=== PATIENT | female | born 1950 | race Caucasian/White ===

== ENCOUNTER 2022-01-25 11:23 | Outpatient (CLI) | payer MEDICARE, SELFPAY ==
--- NOTE | 2022-01-25 11:30 | CRLHL7_ITS ---
For Patients: As a result of the Century Cures Act, medical imaging exams and procedure reports are released immediately into your electronic medical record. You may view this report before your referring provider. If you have questions, please contact your health care provider. BILATERAL MAMMOGRAM WITH COMPUTER-AIDED DETECTION TECHNIQUE: CC and MLO views were obtained. These mammographic images have been obtained using full-field digital technique. These mammographic images were interpreted with the benefit of computer-aided detection. COMPARISON FILM: 01/24/2021, 01/23/2020, 11/28/2018. FINDINGS: The breasts are almost entirely fatty IMPRESSION: There is no radiographic evidence for malignancy. ASSESSMENT: BI-RADS Category 1: Negative RECOMMENDATION: Routine screening mammogram in 1 year. A lay language report of this examination will be provided to the patient. Margret Abreu M.D. Diagnostic/Breast Radiologist [facility] [email or web address] Transcribed: 3:35 p.m. [email or web address] ROB/Dictated by: Margret Abreu MD @ 01/26/2022 8:54:00 AM (Electronically Signed)
== END 2022-01-25 11:24 | disposition home or self-care (01) ==
LOC: MAMMO 11:24
PROVIDERS: PCP Nurse Practitioner Family; Visit Provider Family Medicine
DX: Z12.31 Encounter for screening mammogram for malignant neoplasm of breast (principal)
CPT/HCPCS: 77063; 77067

== ENCOUNTER 2022-07-19 10:50 | Outpatient (CLI) | payer MEDICARE, SELFPAY ==
[2022-07-19 14:00] LABS: Chloride* 107 mmol/L (96-114); Potassium* 4.1 mmol/L (3.6-5.1); Sodium* 143 mmol/L (135-149)
[2022-07-19 14:03] LABS: Blood Urea Nitrogen* 13 mg/dL (7-30); Carbon Dioxide* 26 mmol/L (20-32); Creatinine* 0.8 mg/dL (0.5-1.5); Estimated Glomerular Filt Rate 80 ml/min; Glucose* 112 mg/dL (60-115)
[2022-07-19 14:04] LABS: Calcium* 9.9 mg/dL (8.4-10.6)
== END 2022-07-19 10:51 | disposition home or self-care (01) ==
LOC: LKVREF 10:50
PROVIDERS: PCP Nurse Practitioner Family; Visit Provider Emergency Medicine
DX: I10 Essential (primary) hypertension (principal)
CPT/HCPCS: 80048

== ENCOUNTER 2022-11-01 10:21 | Outpatient (CLI) | payer MEDICARE, SELFPAY ==
[2022-11-01 16:38] LABS: Lab Add On Test New Spec Needed
== END 2022-11-01 10:22 | disposition home or self-care (01) ==
PROVIDERS: PCP Emergency Medicine; Visit Provider Emergency Medicine
DX: R73.01 Impaired fasting glucose (principal); E78.5 Hyperlipidemia, unspecified; I10 Essential (primary) hypertension
CPT/HCPCS: 80053; 80061

== ENCOUNTER 2022-11-15 13:01 | Outpatient (CLI) | payer MEDICARE, SELFPAY ==
--- NOTE | 2022-11-15 13:30 | CRLHL7_ITS ---
For Patients: As a result of the Cures Act, medical imaging exams and procedure reports are released immediately into your electronic medical record. You may view this report before your referring provider. If you have questions, please contact your health care provider. DXA BONE MINERAL DENSITY STUDY, 11/15/2022 Reason for exam: Osteoporosis screening. Current height (inches): 63 Weight (lbs.): 202 Menopause age: 28 Ethnicity: White 1. Have you had a previous hip or vertebral fracture? No. 2. Have you had any fractures during your adult life which did not result from significant trauma (e.g., auto accident)? No. 3. Did either of your parents have a hip fracture? No. 4. Do you smoke? No. 5. Have you ever taken Glucocorticoids? No. 6. Do you have rheumatoid arthritis? No. 7. Do you have secondary osteoporosis? No. 8. Do you drink 3 or more alcoholic drinks per day? No. 9. Are you being treated for osteoporosis? No. 10. Have you ever taken any of the following medications: Actonel, Evista, Fosamax, Miacalcin, Reclast, Boniva, Forteo, HRT (i.e., estrogen/hormone therapy), Protelos, Prolia, Vitamin D, Calcium, other ??? please specify. ANSWER: Yes; vitamin D. 11. Do you have any of the following medical conditions: Anorexia or bulimia, asthma or emphysema, end stage renal disease, hyperparathyroidism, any seizure disorders, cancer, inflammatory bowel diseases, hysterectomy, other ??? please specify. ANSWER: No. 12. What was your maximum height (inches)? 63. 13. Do you perform weightbearing exercise regularly? Yes. 14. Do you regularly consume dairy products? Yes. 15. Do you drink caffeinated beverages? No. 16. At what age did your period start? 13. 17. Are you premenopausal? No. 18. How many full-term pregnancies have you had? 0 . 19. Have you ever missed your period for more than 6 months in a row (not including or menopause)? No. TECHNIQUE: Bone mineral density study was performed using the [employer]. FINDINGS: The results of the study expressed as bone mineral density (BMD) are as follows: Lumbar Spine L1, L3 to L4: BMD: 1.720 g/cm2. T-score: 6.1. Z-score: 8.2. Neck Left: BMD: 0.723 g/cm2. T-score: -1.1. Z-score: 0.7. Right: BMD: 0.758 g/cm2. T-score: -0.8. Z-score: 1.0. Total Left: BMD: 0.838 g/cm2. T-score: -0.9. Z-score: 0.7. Right: BMD: 0.783 g/cm2. T-score: -1.3. Z-score: 0.2. IMPRESSION: Osteopenia. FRAX 10-year Fracture Risk Major Osteoporotic Fracture: 8.3% Hip Fracture: 0.9% Reported Risk Factors: [place] () Neck BMD = 0.723, BMI = 35.8 DANNY CAMILO M.D. Diagnostic Radiologist [email or web address] Transcribed: 11:[address]/Dictated by: Danny Camilo MD @ 11/16/2022 9:09:00 AM (Electronically Signed)
== END 2022-11-15 13:02 | disposition home or self-care (01) ==
LOC: RAD 13:02
PROVIDERS: PCP Emergency Medicine; Visit Provider Emergency Medicine
DX: Z13.820 Encounter for screening for osteoporosis (principal); M85.89 Other specified disorders of bone density and structure, multiple sites
CPT/HCPCS: 77080

== ENCOUNTER 2023-02-13 15:11 | Outpatient (CLI) | payer MEDICARE, SELFPAY ==
--- NOTE | 2023-02-13 15:20 | CRLHL7_ITS ---
For Patients: As a result of the Century Cures Act, medical imaging exams and procedure reports are released immediately into your electronic medical record. You may view this report before your referring provider. If you have questions, please contact your health care provider. BILATERAL SCREENING MAMMOGRAM WITH COMPUTER-AIDED DETECTION TECHNIQUE: CC and MLO views were obtained. These mammographic images have been obtained using full-field digital technique. These mammographic images were interpreted with the benefit of computer-aided detection. COMPARISON FILM: 01/25/22, 01/23/20, 08/04/19. FINDINGS: The breasts are almost entirely fatty. IMPRESSION: There is no radiographic evidence for malignancy. ASSESSMENT: BI-RADS Category 2: Benign RECOMMENDATION: Routine screening mammogram in 1 year. A lay language report of this examination will be provided to the patient. MAGALY HERNANDEZ M.D. Diagnostic/Nuclear Medicine Radiologist [email or web address] MAURA:[email or web address] Transcribed: 02/14/2023, 6:[address]/Dictated by: Magaly Hernandez MD @ 02/14/2023 8:51:00 AM (Electronically Signed)
== END 2023-02-13 15:12 | disposition home or self-care (01) ==
LOC: MAMMO 15:12
PROVIDERS: PCP Emergency Medicine; Visit Provider Emergency Medicine
DX: Z12.31 Encounter for screening mammogram for malignant neoplasm of breast (principal)
CPT/HCPCS: 77063; 77067

== ENCOUNTER 2024-04-10 13:35 | Outpatient (CLI) | payer MEDICARE, SELFPAY | END 2024-04-10 13:36 | disposition home or self-care (01) | PROVIDERS: PCP Emergency Medicine; Visit Provider Emergency Medicine | DX: I10 Essential (primary) hypertension (principal); M85.9 Disorder of bone density and structure, unspecified | CPT/HCPCS: 80053; 82306 ==

== ENCOUNTER 2024-04-25 15:14 | Outpatient (CLI) | payer MEDICARE, SELFPAY ==
--- NOTE | 2024-04-25 15:20 | CRLHL7_ITS ---
For Patients: As a result of the Century Cures Act, medical imaging exams and procedure reports are released immediately into your electronic medical record. You may view this report before your referring provider. If you have questions, please contact your health care provider. BILATERAL SCREENING MAMMOGRAM WITH COMPUTER-AIDED DETECTION AND TOMOSYNTHESIS TECHNIQUE: CC and MLO views were obtained. These mammographic images have been obtained using full-field digital technique. These mammographic images were interpreted with the benefit of computer-aided detection. Breast Tomosynthesis was used in this interpretation. COMPARISON FILM: 02/13/23, 01/25/22, 01/24/21. FINDINGS: There are scattered areas of fibroglandular density. IMPRESSION: There is no radiographic evidence for malignancy. ASSESSMENT: BI-RADS Category 1: Negative RECOMMENDATION: Routine screening mammogram in 1 year. A lay language report of this examination will be provided to the patient. Danny Moise M.D. Diagnostic Radiologist [email or web address] SP/Dictated by: Danny Moise MD @ 04/28/2024 10:01:00 AM (Electronically Signed)
== END 2024-04-25 15:15 | disposition home or self-care (01) ==
LOC: MAMMO 15:16
PROVIDERS: PCP Emergency Medicine; Visit Provider Emergency Medicine
DX: Z12.31 Encounter for screening mammogram for malignant neoplasm of breast (principal)
CPT/HCPCS: 77063; 77067

== ENCOUNTER 2025-04-01 20:34 | Inpatient (IN) | payer MEDICARE, SELFPAY ==
--- OUTSIDE RECORDS SUMMARY | 2025-04-01 20:37 | XMS_ITS | Clinical Summary ---
Author Organization [facility] Address [address] [place] [address] Care Team Providers Care Reliability Engineer Name Role Phone None Reported, Pcp Primary Care Provider Unavail able Source Comments Patient records contain information from all sites at [facility]. For routine questions regarding patient records, call [phone] during business hours, M-F 8:00 AM - 5:00 PM Central Time. Record requests for emergency care only can be directed to [phone] at any time.[facility] Allergies Active Allergy Reactions Criticality Noted Date Comments Penicillins Anaphylaxis,Rash High 07/06/2003 Medications aspirin [address] tablet Take 1 tablet (81 mg total) by mouth daily. 90 tablet 01/05/2024 Active atorvastatin (LIPITOR) 40 mg tablet Take 1 tablet (40 mg total) by mouth at bedtime. 90 tablet 01/04/2024 Active lisinopriL (PRINIVIL,ZESTRI L) 10 mg tablet Take 1 tablet (10 mg total) by mouth daily. 90 tablet 01/05/2024 Active Active Problems Problem Noted Date Diagnosed Date Syncope 01/02/2024 Non-ST Elevation Myocardial Infarction 4 Edema 09/07/2011 Fracture Patella Closed Initial 12/02/2007 Overview (01/02/2024): left 2004 ; Fx Patella Closed Rhinitis Allergic 07/14/2003 Overview (01/02/2024): Rhinitis Allergic NOS Obesity Unspecified 01/03/2003 Immunizations Immunization Administration Dates Next Due DT, Pediatric 06/11/1985 HepB Adult 04/28/2005,02/01/1994,01/04/1994 Influenza, Unspecified 04/21/2010 Td (Adult), adsorbed 08/03/2003 Tdap 01/02/2024,04/23/2012 Social History Tobacco Use Types Packs/Day Years Used Date Smoking Tobacco: Unknown Passive Smoke Exposure: Never Smokeless Tobacco: Never Tobacco Cessation:Counseling Given: Not Answered Alcohol Use Standard Drinks/Week Comments Defer 0 (1 standard drink = 0.6 oz pur e alcohol) [facility] Utilities Answer Date Recorded In the past 12 months has e [employer], gas, oil, or water [employer] threatened to shut off services in your home? Patient declined 01/02/2024 Humiliation, Afraid, Rape, and Kick questionnair e Answer Date Recorded Within the last year, have y ou been afraid of your partner or ex-partner? Patient declined 01/02/2024 Within the last year, have y ou been humiliated or emotionally abused in other ways by your partner or ex-partner? Patient declined 01/02/2024 Within the last year, have y ou been kicked, hit, slapped, or otherwise physically hurt by your partner or ex-partner? Patient declined 01/02/2024 Within the last year, have y ou been raped or forced to have any kind of sexual activity by your partner or ex-partner? Patient declined 01/02/2024 Hunger Vital Sign Answer Date Recorded Within the past 12 months, y ou worried that your food would run out before you got the money to buy more. Patient declined Within the past 12 months, t he food you bought just didn't last and you didn't have money to get more. Patient declined 11/2023 PRAPARE - Transportation Answer Date Re corded In the past 12 months, has l ack of transportation kept you from medical appointments or from getting medications? Patient declined 01/02/2024 In the past 12 months, has l ack of transportation kept you from meetings, work, or from getting things needed for daily living? Patient declined 01/02/2024 Housing Stability Answer Date Recorded What is your living situation today? 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 Gender Identity Not on file Sexual Orientation Not on file Last Filed Vital Signs Vital Sign Reading Time Taken Comments Blood Pressure 133/57 01/04/2024 11:30 AM CDT Pulse 95 01/04/2024 5:45 AM CDT Temperature 36.6 C (97.9 F) 01/04/2024 10:33 AM CDT Respiratory Rate 16 01/04/2024 10:33 AM CDT Oxygen Saturation 95% 01/04/2024 2:46 AM CDT Inhaled Oxygen Concentration - - Weight 99.6 kg (219 lb 9.3 oz) 01/02/2024 10:12 PM CDT Height 162.6 cm (5' 4) 01/02/2024 10:12 PM CDT Body Mass Index 37.69 01/02/2024 10:12 PM CDT Plan of Treatment Health Maintenance Due Date Last Done Comments Bone Density Scan (Osteoporosis Screen) 1952 CT Colonography 1952 Cologuard 1950 Colonoscopy 1952 Colorectal Cancer Screening 1952 FIT 1952 Hepatitis C Screening 1950 Office Visit for Blood Pressure Check / Re-check 1952 Pneumococcal vaccine (50+ years) (1 of 1 - PCV) 2002 Zoster Vaccines (1 of 2) 2002 Mammogram 10/10/2013 10/10/2012, 09/27, 10/11/2011 Depression Screening (Annual PHQ-2) 07/30/2024 Fall Risk Screen (Annual) 07/30/2024 Creatinine Level (Kidney Function Test) 01/03/2025 01/04/2024, 01/03/2024, 01/02/2024 Potassium Level 01/03/2025 01/04/2024, 06/0 12/2023, 01/02/2024 Sodium Level 01/03/2025 01/04/2024, 06/0 12/2023, 01/02/2024 COVID-19 Vaccine ( season) 2025 Influenza Vaccine (#1) 2025 0, 06/07/1999, 05/18/1998, Additional history exists Fasting Glucose for Diabetes Screening 01/03/2027 01/04/2024, 01/03/2024, 01/03/2024, Additional history exists Lipid (Cholesterol) Screening 01/02/2029 01/03/2024 DTaP,Tdap,and Td Vaccines (5 - Td or Tdap) 01/01/2034 01/02/2024, 04/23/2012, 08/03/2003, Additional history exists Hepatitis B Vaccines Completed 04/28/2005, 02/01/1994, 01/04/1994 IPV Vaccines Aged Out No longer eligi ble based on patient's age to complete this topic Procedures Procedure Name Priority Date/Time Associated Diagnosis Comments BASIC METABOLIC PANEL, S/P Routine 01/04/2024 6:37 AM CDT LIPID PANEL, S Routine 01/03/2024 6:24 AM CDT from Last 3 Months or Most Recently Relevant to Health Maintenance Results * Basic Metabolic Panel (01/04/2024 6:37 AM CDT) Potassium, P 3.9 3.6 - 5.2 mmol/L 01/04/2024 7:07 AM CDT [facility] Sodium, P 141 135 - 145 mmol/L 01/04/2024 7:07 AM CDT [facility] Chloride, P 105 98 - 107 mmol/L 01/04/2024 7:07 AM CDT [facility] Bicarbonate, P 22 22 - 29 mmol/L 01/04/2024 7:07 AM CDT [facility] Anion Gap, P 14 7 - 15 01/04/2024 7:07 AM CDT [facility] BUN (Blood Urea Nitrogen), P 11 6 - 21 mg/dL 01/04/2024 7:07 AM CDT [facility] Creatinine 0.67 0.59 - 1.04 mg/dL 01/04/2024 7:07 AM CDT [facility] Estimated GFR (eGFR) >90 >=60 mL/min/BSA 01/04/2024 7:07 AM CDT [facility] Comment: Estimated GFR calculated using the 2020 CKD_EPI creatinine equation. Calcium, Total, P 9.3 8.8 - 10.2 mg/dL 01/04/2024 7:07 AM CDT [facility] Glucose, P 118 70 - 140 mg/dL 01/04/2024 7:07 AM CDT TO Blood (Blood, Venous) 01/04/2024 6:37 AM CDT 01/04/2024 6:43 AM CDT Bony Vidal M.D. LAB BLOOD ADD-ON F inal Result [facility] [address] [place] [address], [facility] [place] [address] [address] * (ABNORMAL) Lipid Panel (01/03/2024 6:24 AM CDT) Triglycerides 180(H) mg/dL 01/03/2024 6:48 AM CDT [facility] Comment: ----REFERENCE VALUE---- Normal: <150 mg/dL Borderline High: 150-199 mg/dL High: 200-499 mg/dL Very High: > or =500 mg/dL Cholesterol, Total 219(H) mg/dL 2023 6:48 AM CDT [facility]TO Comment: ----REFERENCE VALUE---- Desirable: < 200 mg/dL Borderline High: 200 - 239 mg/dL High: > or = 240 mg/dL Cholesterol, LDL, Calculated 145(H) mg/dL 01/03/2024 6:48 AM CDT [facility] Comment: ----REFERENCE VALUE---- Desirable: <100 mg/dL Above Desirable: 100-129 mg/dL Borderline High: 130-159 mg/dL High: 160-189 mg/dL Very High: >=190 mg/dL ----ADDITIONAL INFORMATION---- LDL cholesterol calculated using the Frederick/NIH equation. Cholesterol, HDL 41(L) >=50 mg/dL 01/03/20 6:48 AM CDT [facility] Cholesterol, Non-HDL, Calculated 178(H) mg/dL 01/03/2024 6:48 AM CDT [facility] Comment: ----REFERENCE VALUE---- Desirable: <130 mg/dL Above Desirable: 130-159 mg/dL Borderline High: 160-189 mg/dL High: 190-219 mg/dL Very High: > or =220 mg/dL Fasting (8 HR or more) Yes 01/03/2024 6:28 AM CDT [facility] Blood (Blood, Venous) 01/03/2024 6:24 AM CDT 01/03/2024 6:28 AM CDT us Eddie Nunez M.D. LAB BLOOD ADD-ON Final Result [facility] [address] [place] [address], [facility] [place] [address] [place] [address] from Last 3 Months or Most Recently Relevant to Health Maintenance [facility] Advance Directives For more information, please contact: [phone] * Full Code (Latest Code Status on File) Date Activated Date Inactivated Comments 01/03/2024 1:30 PM 01/04/2024 3:31 PM Question Answer Comments Full Code: Discussed * Full Code Date Activated Date Inactivated Comments 01/02/2024 10:20 PM 01/03/2024 1:30 PM Question Answer Comments Full Code: Discussed Care Teams Reliability Engineer Relationship Specialty Start Date End Date None Reported, Pcp PCP - General 06/06/24
--- OUTSIDE RECORDS SUMMARY | 2025-04-01 20:37 | XMS_ITS | Clinical Summary ---
Author Organization [facility] Address [address] [place] [id number] Care Team Providers Care Batch Dumper Name Role Phone Amber Sapp Primary Care Provider + Allergies Active Allergy Reactions Criticality Noted Date Comments Penicillins Anaphylaxis,Rash High 07/06/2003 Medications acetaminophen (TYLENOL) 325 mg tabletIndications: Status post placement of implantable loop recorder Take 2 Tablets (650 mg) by mouth every 4 hours if needed for Pain (For mild pain.). Max acetaminophen dose: 4000mg in 24 hrs. 05/13/20 24 Active apixaban (Eliquis) 5 mg tabletIndications: Paroxysmal atrial fibrillation (HC) Take 1 Tablet (5 mg) by mouth two times daily. 180 Tablet 3 08/14/19 25 Active metoprolol succinate (TOPROL XL) 25 mg Sustained-Release tabletIndications: Paroxysmal atrial fibrillation (HC) Take 1 Tablet (25 mg) by mouth once daily. 90 Tablet 3 09/16/19 25 Active atorvastatin (LIPITOR) 40 mg tabletIndications: Paroxysmal atrial fibrillation (HC),Hyperlipidemi a, unspecified hyperlipidemia type Take 1 Tablet (40 mg) by mouth at bedtime. 90 Tablet 3 09/16/19 25 Active lisinopriL (PRINIVIL; ZESTRIL) 10 mg tabletIndications: Paroxysmal atrial fibrillation (HC),Hyperlipidemi a, unspecified hyperlipidemia type Take 1 Tablet (10 mg) by mouth once daily. 90 Tablet 3 09/16/19 25 Active Encounters Date Type Department Care Team Description 03/18/2025 Telephone [facility] [address] [place] [address] Dr Guerra [address] [place] [id number] Guero Waters MD Results (Loop recorder) from Last 3 Months Social History Tobacco Use Types Packs/Day Years Used Date Smoking Tobacco: Never Smokeless Tobacco: Never Tobacco Cessation:Counseling Given: Not Answered Alcohol Use Standard Drinks/Week Comments Not Asked 0 (1 standard drink = 0.6 oz pur e alcohol) rare use Comments Unknown Sex and Gender Information Value Date Recorded Sex Assigned at Not on file Legal Sex Female 6:23 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5 cm (5' 2) 05/13/2024 12:1 3 PM CDT Body Mass Index 41.08 05/13/2024 12:13 PM CDT Plan of Treatment Upcoming Encounters Date Type Department Care Team (Late st Contact Info) Description 06/17[facility]20[phone] Health Maintenance Due Date Last Done Comments Tetanus booster 1963 Depression screening for age 12+ 1964 Hepatitis C screening for ag e 18-79 1970 Pneumococcal series for age 50+ (1 of 2 - PCV) 1971 Colonoscopy through age 75 1997 Lipids for age 45-75 1997 Mammogram for age 45-75 1997 Zoster (shingles) series for age 50+ (1 of 2) 2002 RSV vaccine for adults or (1 - Risk 60-74 years 1-dose series) 2012 DEXA/DXA scan for age 65+ 2017 Medicare Wellness for age 65+ 2017 COVID-19 vaccine series ( season) 2024 08/26/2021, 03/14/2021, 02/21/2021 BMI (ht and wt on same day) for age 18+ 02/11/2025 02/12/2024 Influenza Vaccine (#1) 2025 Hepatitis B series for 19+ Aged Out N o longer eligible based on patient's age to complete this topic Insurance [facility] MEDICARE PART A HB ONLY [facility] Care Teams Batch Dumper Relationship Specialty [facility] Date [facility] [address] [place] [address] PCP - General 03/25/24
[2025-04-01 20:42] VITALS: BP 158/101; PULSE 78; RESP 16; TEMP 36.7; O2SAT 97; BMI 32.6
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
--- NOTE | 2025-04-01 21:04 | CRLHL7_ITS ---
For Patients: As a result of the Cures Act, medical imaging exams and procedure reports are released immediately into your electronic medical record. You may view this report before your referring provider. If you have questions, please contact your health care provider. Indication: Trauma. Technique: AP view of the pelvis with AP and lateral views of the left hip. Comparison: None. Findings/Impression: Acute, nondisplaced intertrochanteric fracture of the left femur. No additional fracture appreciated. No dislocation. No suspicious soft tissue abnormality. Dictated by Andrew Mckeon MD @ 04/01/2025 10:03:19 PM (Electronically Signed)
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
[2025-04-01 22:28] LABS: Hematocrit 43.9 % (33.0-51.0); Hemoglobin* 14.4 gm/dL (12.0-16.0); Immature Granulocytes Abs Auto 0.03 K/uL (0.00-0.30); Immature Granulocytes Pct Auto 0.3 %; Mean Corpuscular HGB Conc 33 gm/dL (32-36); Mean Corpuscular Hemoglobin 30 pg (26-34); Mean Corpuscular Volume 92 fL (80-100); RDW Coefficient of Variation % 13.6 % (11.5-15.5); Red Blood Count 4.76 m/uL (4.00-5.20); White Blood Count* 9.63 K/uL (4.50-11.00)
[2025-04-01 22:29] LABS: Lymphocytes Absolute Auto 1.10 K/uL (0.90-2.90); Slide Review Reflex No
[2025-04-01] MEDS: MORPHINE 4 MG/ML INJ IVP (22:30)
[2025-04-01 22:40] VITALS: BP 162/79; PULSE 73; RESP 21; TEMP 36.6; O2SAT 95
[2025-04-01 22:51] LABS: Albumin* 4.3 g/dL (3.3-5.0); Chloride* 110 mmol/L (96-114); Potassium* 4.6 mmol/L (3.6-5.1); Sodium* 142 mmol/L (135-149)
[2025-04-01 22:53] LABS: Blood Urea Nitrogen* 18 mg/dL (7-30); Creatinine* 0.8 mg/dL (0.5-1.5); Est. Creatinine Clearance* 43.91; Estimated Glomerular Filt Rate 78 ml/min
[2025-04-01 22:54] LABS: Alanine Aminotransferase* 35 U/L (4-35); Alkaline Phosphatase* 98 U/L (40-150); Anion Gap 6 mEq/L (7-15); Aspartate Amino Transferase* 51 U/L (12-35); Bilirubin Direct* 0.4 mg/dL (0.0-0.5); Bilirubin Total* 0.6 mg/dL (0.1-1.5); Calcium* 9.1 mg/dL (8.4-10.6); Carbon Dioxide* 26 mmol/L (20-32); Glucose* 135 mg/dL (60-115); Total Protein* 7.7 g/dL (6.0-8.3)
[2025-04-01 23:03] VITALS: O2SAT 95
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
[2025-04-01 23:33] VITALS: BP 174/79; PULSE 67; RESP 18; TEMP 36.6; O2SAT 94; BMI 39.2
[2025-04-02] VITALS (26 sets, daily range): BP systolic 128–204; BP diastolic 60–144; PULSE 50–79; RESP 14–18; TEMP 35.7–36.6; O2SAT 91–98; BMI 39.6; BMI 39.7
[2025-04-02] MEDS: MORPHINE 4 MG/ML INJ 2 MG IVP ×3 (02:35→10:03)
[2025-04-02 06:02] LABS: Hematocrit 40.7 % (33.0-51.0); Hemoglobin* 13.3 gm/dL (12.0-16.0); Mean Corpuscular HGB Conc 33 gm/dL (32-36); Mean Corpuscular Hemoglobin 30 pg (26-34); Mean Corpuscular Volume 92 fL (80-100); Red Blood Count 4.43 m/uL (4.00-5.20); White Blood Count* 5.61 K/uL (4.50-11.00)
[2025-04-02 06:06] LABS: Slide Review Reflex No
[2025-04-02 06:21] LABS: Albumin* 3.8 g/dL (3.3-5.0); Chloride* 109 mmol/L (96-114); Potassium* 4.0 mmol/L (3.6-5.1); Sodium* 140 mmol/L (135-149)
[2025-04-02 06:23] LABS: Blood Urea Nitrogen* 16 mg/dL (7-30); Creatinine* 0.6 mg/dL (0.5-1.5); Est. Creatinine Clearance* 43.91; Estimated Glomerular Filt Rate 95 ml/min
[2025-04-02 06:24] LABS: Alanine Aminotransferase* 36 U/L (4-35); Alkaline Phosphatase* 82 U/L (40-150); Anion Gap 5 mEq/L (7-15); Aspartate Amino Transferase* 48 U/L (12-35); Bilirubin Total* 0.8 mg/dL (0.1-1.5); Calcium* 8.7 mg/dL (8.4-10.6); Carbon Dioxide* 26 mmol/L (20-32); Glucose* 119 mg/dL (60-115); Total Protein* 6.9 g/dL (6.0-8.3)
--- NOTE | 2025-04-02 06:38 | PC.NURSE ---
end of shift: Pt is AOx4. VSS. Afebrile. Pt came from ED at 2317. Reported pain >5, pain med given. See EMAR. Slight bruising noted L hip. Pure wick in place. Pt NPO since 0000. is bedside and supportive. Pt education provided on medications, procedures, hospital environment, and fall prevention. Pt in bed, call light w/i reach.
[2025-04-02] MEDS: LACTATED RINGERS 1000 ML 1,000 ML 75 ML IV (06:50)
--- NOTE | 2025-04-02 08:36 | P.ANES_ITS ---
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
--- NOTE | 2025-04-02 08:36 | W.ANESCHARGE ---
Anesthesia Charges Start Date/Time Anesthesia Start Date: 04/02/25 Anesthesia Start Time: 10:54 Stop Date/Time Anesthesia Stop Date: 04/02/25 Anesthesia Stop Time: 13:28 Summary Extremes of Age - Over 70 or under 1: MDA Coding CPT Codes CPT Codes: ANESTH SURGERY OF FEMUR - 35837 ([id number]) P3 - PATIENT W/SEVERE SYS DISEASE, QK - FORK LIFT TECHNICIAN 2-4 CNCRNT ANES PROC, QX - SALES DEVELOPMENT SPECIALIST SVC W/ MD MED DIRECTION Additional Codes: Summary - Extremes of Age - Over 70 or under 1: MDA ([id number])
[2025-04-02] MEDS: ATORVASTATIN CALCIUM 40 MG TABLET PO (08:48)
[2025-04-02] MEDS: METOPROLOL SUCCINATE (XL) 25 MG TAB PO (08:48)
[2025-04-02] MEDS: AMLODIPINE 10 MG TABLET PO (08:49)
--- NOTE | 2025-04-02 10:04 | W.PM.NB ---
Nerve Block Nerve Block Time Seen by Provider: 11:40 Date Seen: 04/02/25 Type of block requested by surgeon for post-operative analgesia: ARCELIA/LFCN Side: left Time out performed: Yes Verification of patient name: Yes Verification of date of : Yes Site marking: site marked Name of person performing procedure: Anthony Continuous monitoring Was continuous monitoring of O2 sat, B/P, fundraising assistant, recorded every 15 minutes?: Yes Procedure Checklist: sterile prep, needles and gloves Ultrasound guided. Images saved: Yes Medications given in 5ml increments after negative aspiration: Ropivicaine %: 0.5 mL: 30 Needle gauge: 20 Precedex (mcg): 25 Patient tolerated procedure well: Yes Additional comments: Needle noted below psoas tendon needle noted adjacent to LFCN Block Charges Block Charge (with Pro Fee): Other Periph Nerve Block Use of Ultrasound Machine for Block: Yes- US Guidance/pain block
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
--- NOTE | 2025-04-02 11:15 | CRLHL7_ITS ---
For Patients: As a result of the Cures Act, medical imaging exams and procedure reports are released immediately into your electronic medical record. You may view this report before your referring provider. If you have questions, please contact your health care provider. Indication: Intra op Technique: Three fluoroscopic images of the left proximal femur. Fluoroscopic time 74.4 seconds. IMPRESSION: Fluoroscopic guidance for open reduction internal fixation of proximal left femoral fracture. Dictated by Danny Moise MD @ 04/02/2025 12:45:21 PM (Electronically Signed)
--- NOTE | 2025-04-02 12:34 | PC.SOCIAL ---
Discharge planning: odd jobs day worker met with pt's while she was still in recovery after surgery. odd jobs day worker explained that this worker did not know if the pt would be recommended for short-term rehab, as it would depend on how well she did with PT/OT after surgery, but wanted to provide the pt and her with the retirement facility list that has the specific facilities that are contracted with the pt's insurance. Pt has a Medicare Advantage Plan with [facility] which means only certain retirement facilities contract with that specific insurance. Pt's will keep the list and we will wait to see what is recommended for the pt. Social work to follow-up as needed.
--- NOTE | 2025-04-02 13:25 | P.IMPN_ITS ---
Assessment and Plan Assessment and plan (1) Fracture of hip, left, closed: Problem comment: NPO at midnight Start fluids tomorrow morning Orthopedic consult for open reduction and internal fixation 04/02/2025 Status: Acute (2) Afib: Problem comment: It seems patient had an episode of AFib in the past on metoprolol A note from Cardiology office states that patient was started on Eliquis But the patient states that she was never on any blood thinners and she is not taking Eliquis. Status: Acute (3) Syncope: Problem comment: Hx of syncope in december 2023 Her fall this time is mechanical, no loss of consciousness I checked cardiology notes ( & 2023). Workup for syncopal episode: Cardiac catheterization 01/03/2024 which showed mild CAD, she had an MRI of the heart too. She wore a ZIO patch and had a loop recorder implant that didn't show any events except for : One Pause episode: 1 detection occurred on 03/17 at 1456. Viewable ECG shows NSR ~63 bpm, followed by 2.5 second pause (potential rare P waves noted but unable to discern). Patient then continues in NSR w/out Associated symptoms. N.B on 08/12/24 Pt had an AFib episode Status: Acute (4) Non-STEMI (non-ST elevated myocardial infarction): Problem comment: Cardiac catheterization 01/03/2024 mild CAD cardiac MR done Status: Acute (5) Hypertension: Problem comment: Resume medications Status: Acute (6) Normal echocardiogram: Problem comment: 12/2023 regional wall abnl, EF 61% Status: Acute Plan 1. Reviewed impression, plans, recommendations with patient and her , [place] 2. Answered their questions their satisfaction 3. They are agreeable with above stated plans and recommendations Total Time Spent Total Time Spent: 35 minutes Subjective Date Seen: 04/02/25 Interval history: Admission history of present illness: ?74 year old female with past medical history of hyperlipidemia, A-Fib & history of non-STEMI/ mild coronary artery disease who presents to the ED after falling from a standing position. Patient denies losing consciousness or hitting her head. she described a mechanical fall. She presented with left hip pain. Previously, pt had a syncopal episode (2023), I checked cardiology notes ( & 2023). Workup for syncopal episode: Cardiac catheterization 01/03/2024 which showed mild CAD, she had an MRI of the heart too. She wore a ZIO patch and had a loop recorder implant that didn't show any events except for : One Pause episode: 1 detection occurred on 03/17 at 1456. Viewable ECG shows NSR ~63 bpm, followed by 2.5 second pause (potential rare P waves noted but unable to discern). Patient then continues in NSR w/out Associated symptoms. N.B on 08/12/24 Pt had an AFib episode and was started on Eliquis But the patient states that she was never on any blood thinners and she is not taking Eliquis. At the ED, patient was hemodynamically stable an x-ray of the hip showed a left hip fracture. ED provider contacted our orthopedic team who stated that they will take patient for ORIF procedure tomorrow. ?N.B patient states that she does not have any symptoms (no chest discomfort or shortness of breath) on exertion.? 04/02/2025, hospital day 2. This morning before surgery she indicates she is feeling well and doing well. Denies cardiopulmonary symptoms including exertional and at rest. Pain adequately managed. Exam Narrative: Exam Narrative: I examined the patient in her hospital room. Appears comfortable and in no acute distress. Laying supine on her bed. Vision and hearing are adequate. Friendly, articulate, cooperative. Alert and oriented x4. Edentulous. Moist buccal mucosa. Mallampati class 4 airway. Neck is full. Lungs are clear to auscultation. Heart tones with regular rhythm. Abdomen is obese with active bowel sounds, soft, nontender. Left lower extremity is externally rotated compared to the right. Const: Vital Signs, click to edit/add: Vital Signs - 24 hr 04/01/25 20:42 04/01/25 22:40 04/01/25 23:03 Temperature 98.1 F 97.9 F Pulse Rate Pulse Rate [Pulse Oximeter] 78 73 Respiratory Rate 16 21 Blood Pressure [Le ft Arm] Blood Pressure [Ri ght Arm] Blood Pressure [Ri ght Upper Arm] 158/101 H 162/79 H Pulse Oximetry 97 95 95 Oxygen Delivery Me thod Room Air Room Air 04/01/25 23:33 04/02/25 02:03 04/02/25 02:49 Temperature 97.9 F 97.8 F Pulse Rate 67 Pulse Rate [Pulse Oximeter] 67 69 Respiratory Rate 18 16 Blood Pressure [Le ft Arm] Blood Pressure [Ri ght Arm] 174/79 H 152/83 H Blood Pressure [Ri ght Upper Arm] Pulse Oximetry 94 95 Oxygen Delivery Me thod Room Air Room Air 04/02/25 07:00 04/02/25 07:26 Temperature 97.8 F Pulse Rate 70 Pulse Rate [Pulse Oximeter] 66 Respiratory Rate 18 Blood Pressure [Le ft Arm] 204/93 H Blood Pressure [Ri ght Arm] Blood Pressure [Ri ght Upper Arm] Pulse Oximetry 97 Oxygen Delivery Me thod Room Air Labs Labs: Laboratory Results - last 24 hr 04/01/25 04/02/25 22:13 05:54 WBC 9.63 5.61 RBC 4.76 4.43 Hgb 14.4 13.3 Hct 43.9 40.7 MCV 92 92 MCH 30 30 MCHC 33 33 RDW Coeff of Niya 13.6 Plt Count 178 143 Neut % (Auto) 79.1 H Lymph % (Auto) 11.9 L [place] % (Auto) 7.0 Eos % (Auto) 1.6 Baso % (Auto) 0.1 Neut # (Auto) 7.60 H Lymph # (Auto) 1.10 [place] # (Auto) 0.70 Eos # (Auto) 0.15 Baso # (Auto) 0.01 Abs Immat Gran (auto) 0.03 Imm/Tot Granulo (auto) 0.3 Sodium 142 140 Potassium 4.6 4.0 Chloride 110 109 Carbon Dioxide 26 26 Anion Gap 6 L 5 L BUN 18 16 Creatinine 0.8 0.6 Estimated Creat Clear 43.91 43.91 Estimated GFR 78 95 Glucose 135 H 119 H Calcium 9.1 8.7 Magnesium 2.0 Total Bilirubin 0.6 0.8 Direct Bilirubin 0.4 AST 51 H 48 H ALT 35 36 H Alkaline Phosphatase 98 82 Total Protein 7.7 6.9 Albumin 4.3 3.8 Imaging Left hip x-ray: Attestation: I have reviewed the pertinent imaging results. Radiologist's impression: Findings/Impression: Acute, nondisplaced intertrochanteric fracture of the left femur. No additional fracture appreciated. No dislocation. No suspicious soft tissue abnormality.
--- NOTE | 2025-04-02 13:36 | P.ANES_ITS ---
Anesthesia Charges Start Date/Time Anesthesia Start Date: 04/02/25 Anesthesia Start Time: 10:54 Stop Date/Time Anesthesia Stop Date: 04/02/25 Anesthesia Stop Time: 13:28 Summary Extremes of Age - Over 70 or under 1: FARM EQUIPMENT SERVICE TECHNICIAN Coding CPT Codes CPT Codes: ANESTH SURGERY OF FEMUR - 67347 ([id number]) P3 - PATIENT W/SEVERE SYS DISEASE, QK - TUBING MACHINE OPERATOR 2-4 CNCRNT ANES PROC, QX - FARM EQUIPMENT SERVICE TECHNICIAN SVC W/ MD MED DIRECTION Additional Codes: Summary - Extremes of Age - Over 70 or under 1: FARM EQUIPMENT SERVICE TECHNICIAN ([id number])
--- NOTE | 2025-04-02 13:36 | W.ANESCHARGE ---
Anesthesia Charges Start Date/Time Anesthesia Start Date: 04/02/25 Anesthesia Start Time: 10:54 Stop Date/Time Anesthesia Stop Date: 04/02/25 Anesthesia Stop Time: 13:28 Summary Extremes of Age - Over 70 or under 1: ANAESTHESIOLOGIST Coding CPT Codes CPT Codes: ANESTH SURGERY OF FEMUR - 25996 ([id number]) P3 - PATIENT W/SEVERE SYS DISEASE, QK - DIRECTOR OF PRECLINICAL RESEARCH 2-4 CNCRNT ANES PROC, QX - ANAESTHESIOLOGIST SVC W/ MD MED DIRECTION Additional Codes: Summary - Extremes of Age - Over 70 or under 1: ANAESTHESIOLOGIST ([id number])
--- NOTE | 2025-04-02 13:39 | P.ORPRC_ITS ---
Procedure Note Date of procedure: 04/02/25 Procedure: PREOPERATIVE DIAGNOSES: 1. Left femur intertrochanteric fracture, closed, acute POSTOPERATIVE DIAGNOSES: 1. Left femur intertrochanteric fracture, closed, acute NAME OF OPERATION: 1. Left femur intertrochanteric fracture fixation with intramedullary nail 2. 30460 - intraoperative fluoroscopy up to 1 hour. SURGEON: Hayden Champagne MD BLADE GRADER OPERATOR: Tuan Miguel PA-C. Of note, an learning support assistant was critical for this ca se to aide in patient positioning, extremity positioning, tissue retraction, instrument manipulation, and closure. ANESTHESIA: Spinal EBL: 100 ml IMPLANTS: Synthes short TFN 11 x170 mm with 100 mm lag screw and 1 distal 5.0 mm interlocking screws COMPLICATIONS: None evident INDICATIONS: The patient is a pleasant, 74-year-old female who unfortunately sustained a recent fall. They landed on their left hip and were unable to bear weight. They experienced significant pain which prompted a visit to [facility]. X-rays were obtained and revealed a proximal femur fracture on the left consistent with a pertrochanteric (i.e. intertrochanteric / subtrochanteric) femur fracture. Given these findings, along with the desire to help with pain control and improved mobility / mobilization, surgery was recommended. FINDINGS: Minimally displaced intertrochanteric left femur fracture with displacement, shortening, and varus angulation. PROCEDURE: Following a thorough discussion of risks, benefits, and alternatives, consent was obtained and the left hip was marked. After obtaining proper medical evaluation determining the patient was optimized prior to surge ry, they were brought to the operating room and placed supine on the operating table. Induction of anesthesia undertaken. 2 g IV Ancef was administered within 1 hr of incision preoperatively. Proper time-out was performed identifying proper patient, site, and procedure. The operative extremity was prepped & draped in the appropriate sterile fashion using ChloraPrep after the patient was positioned on the [place] table with the head in neutral alignment all bone prominences well padded. C-arm fluoroscopic imaging was utilized to obtain AP and lateral views of the operative hip. This indeed confirm proper reduction of the proximal femur fracture. 10 blade skin incision was made proximal to the greater trochanteric tip. Sharp incision through skin and gluteal fascia allowed palpation of the greater trochanteric tip. A sharp awl was utilized and placed against the greater trochanteric tip. This was confirmed on C-arm and both in AP and lateral planes to be in appropriate starting position. Aiming down the canal. Once breaching the cortex, the guidewire was passed into the femur. Thereafter the nail was opened, inserted, and confirmed on C-arm fluoroscopy to be intramedullary appropriately. The triple trocar was then applied to the lateral femur, 10 blade incision through the skin and ITB band along the trocars allowed them to be advanced to the lateral cortex. This was confirmed fluoroscopically to be in appropriate position. The guide pin was then placed and confirmed on AP and lateral views with the goal of center center position. The length was measured as noted above and the reamer used followed by screw application. Reduction of the fracture was monitored during insertion. The proximal nail locking screw was tightened down. At this stage, C-arm confirmed proper screw/lag screw position. We then turned our attention to the interlocking screw. The trocar was applied, skin incision lengthened, and diaphysis drilled, measured, and the interlocking screw placed with excellent security. Again C-arm images were obtained to confirm position within the nail and the nail to be within the bone. At this stage, the wounds were thoroughly irrigated normal saline; closure was performed with #0 Vicryl for the deep gluteal fascia, and IT band. 2-0 Stratafix for subcutaneous and 4-0 Monocryl was utilized for subcuticular closure, respectively. The patient was awoken from anesthesia and transferred to the PACU in stable condition. PLAN: 1. Weight bear as tolerated operative lower extremity. 2. Encouraged ice. 3. Oxycodone for pain as needed. 4. Anticipate the need for [facility] facility transfer once medically stabilized 5. 23 hr perioperative antibiotics. 6. Xarelto for DVT prophylaxis along with & SCDs.
[2025-04-02] MEDS: LACTATED RINGERS 1000 ML 1,000 ML 35 ML IV (14:18)
[2025-04-02] MEDS: MORPHINE 4 MG/ML INJ IVP ×3 (14:31→21:23)
[2025-04-02] MEDS: CEFAZOLIN 2 GM in 0.9 % SODIUM CHLORIDE Mini-bag 100 ML IVPB (19:37)
--- NOTE | 2025-04-02 19:56 | PC.NURSE ---
Patient has been very pleasant and cooperative throughout shift. Bradycardia post op. Afebrile. Patient has been using bedside commode with 2 assist. A&Ox3. Hematoma developed on upper surgical site (left hip). Orthopedics contacted, pictures sent on request. Mat wrapped hip per orthopedics order. Hematoma has been outlined. Patient has been given pain control medications and is currently sleeping. NC 1.5 L.
[2025-04-02] MEDS: SENNOSIDES 1 TAB TABLET 2 TAB PO (21:23)
[2025-04-02] MEDS: SODIUM CHLORIDE 0.9 % (FLUSH) 10 ML SYRINGE 5 ML IVF (21:24)
[2025-04-03] VITALS (9 sets, daily range): BP systolic 115–154; BP diastolic 65–82; PULSE 60–82; RESP 14–19; TEMP 36.6–37.5; O2SAT 91–95
[2025-04-03] MEDS: CEFAZOLIN 2 GM in 0.9 % SODIUM CHLORIDE Mini-bag 100 ML IVPB ×2 (03:51→12:13)
--- NOTE | 2025-04-03 06:26 | PC.NURSE ---
end of shift: Pt is AOx4. VSS. Afebrile. Pt had a few bites of food, denies N/V. Up to BR w/ x2A- GB & walker. Pt saline locked. Pain reported; medication given. See EMAR. Pt. in bed comfortable ; call light w/i reach. Tele placed ; NSR noted. Pt. in bed resting comfortably; call light w/i reach.
--- NOTE | 2025-04-03 08:20 | PM.ORPN ---
Subjective Subjective Date Seen: 04/03/25 Principal diagnosis: POD1 Left IM nail for intertrochanteric fracture. Interval history: Patient reports doing well. No acute events over night. States that she is able to walk to the bathroom last night without difficulty. She wants to go home. Pain managed with scheduled and PRN medications, ice. DVT prophylaxis: Rivaroxaban, SCDs, walking. Denies fevers, chills, aches, N/V, CP, SOB/GAN, or lightheadedness. States that her left shoulder was swollen yesterday and somewhat painful-this has resolved. Also states that her left side hip discomfort from the swelling/hematoma is improved, not as painful. They have no steps at home. Ortho Exam Narrative Exam Narrative: -Patient appears comfortable in bed- supine; no apparent acute distress -Alert and oriented times 3 -Operative hip swollen; soft tissues supple; no obvious erythema. Ecchymosis minimal. Warmth appropriate. No large hematoma or fluctuance. Area of hematoma from yesterday, 04/02/2025, outlined with marker which appears to have subsided within this marking. 6 inch Mat bandage girdle in place. This area is mildly tender to palpation, but improved compared to yesterday per patient. -Surgical dressings clean, dry, intact; no obvious drainage, no erythematous streaking peripheral to the bandages -Bilateral calves soft and supple; no significant swelling, edema, tenderness, erythema, discoloration, warmth, or palpable cords -2+ DP/PT pulses, intact dermatomes and myotomes distally (5/5 strength). Const Vital Signs, click to edit/add: Vital Signs - 24 hr 04/02/25 13:25 04/02/25 13:30 04/02/25 13:35 Temperature 97.7 F Pulse Rate 55 L 57 L 57 L Pulse Rate [Pulse Oximeter] Respiratory Rate 14 14 16 Blood Pressure 144/76 H 142/66 H 147/77 H Blood Pressure [Left Arm] Pulse Oximetry 94 94 94 Oxygen Delivery Method Nasal Cannula Nasal Cannula Nasal Cannula Oxygen Flow Rate 4 4 4 Fraction of Inspired Oxygen 100 100 100 04/02/25 13:40 04/02/25 13:45 04/02/25 13:50 Temperature Pulse Rate 52 L 57 L 51 L Pulse Rate [Pulse Oximeter] Respiratory Rate 16 16 16 Blood Pressure 147/89 H 150/63 H 138/81 Blood Pressure [Left Arm] Pulse Oximetry 95 94 95 Oxygen Delivery Method Nasal Cannula Nasal Cannula Nasal Cannula Oxygen Flow Rate 4 2 2 Fraction of Inspired Oxygen 100 100 100 04/02/25 13:55 04/02/25 14:00 04/02/25 14:15 Temperature 97.0 F L 96.3 F L Pulse Rate 56 L 64 51 L Pulse Rate [Pulse Oximeter] Respiratory Rate 16 16 16 Blood Pressure 140/83 H 145/80 H 198/89 H Blood Pressure [Left Arm] Pulse Oximetry 94 94 92 Oxygen Delivery Method Nasal Cannula Nasal Cannula Nasal Cannula Oxygen Flow Rate 2 2 2 Fraction of Inspired Oxygen 100 100 04/02/25 14:30 04/02/25 14:45 04/02/25 15:00 Temperature 96.4 F L 96.5 F L Pulse Rate 55 L 50 L 51 L Pulse Rate [Pulse Oximeter] Respiratory Rate 16 18 18 Blood Pressure 201/99 H 171/144 H 131/67 Blood Pressure [Left Arm] Pulse Oximetry 97 94 93 Oxygen Delivery Method Nasal Cannula Nasal Cannula Nasal Cannula Oxygen Flow Rate 2 Fraction of Inspired Oxygen 04/02/25 15:00 04/02/25 15:00 04/02/25 15:30 Temperature Pulse Rate 52 L Pulse Rate [Pulse Oximeter] Respiratory Rate 18 Blood Pressure 141/69 H Blood Pressure [Left Arm] Pulse Oximetry 93 92 Oxygen Delivery Method Nasal Cannula Nasal Cannula Oxygen Flow Rate 2 2 Fraction of Inspired Oxygen 04/02/25 16:00 04/02/25 16:30 04/02/25 17:30 Temperature 96.7 F L 97.7 F 96.9 F L Pulse Rate 52 L 51 L 61 Pulse Rate [Pulse Oximeter] Respiratory Rate 16 16 Blood Pressure 142/77 H 147/68 H 133/61 Blood Pressure [Left Arm] Pulse Oximetry 95 97 95 Oxygen Delivery Method Nasal Cannula Room Air Oxygen Flow Rate 2 Fraction of Inspired Oxygen 100 04/02/25 18:30 04/02/25 19:30 04/02/25 20:30 Temperature 96.9 F L 97.0 F L 97.0 F L Pulse Rate 50 L 65 61 Pulse Rate [Pulse Oximeter] Respiratory Rate 16 16 16 Blood Pressure 128/72 139/73 147/60 H Blood Pressure [Left Arm] Pulse Oximetry 91 98 91 Oxygen Delivery Method Room Air Nasal Cannula Room Air Oxygen Flow Rate 1 Fraction of Inspired Oxygen 100 04/02/25 22:38 04/02/25 23:00 04/02/25 23:40 Temperature 97.6 F Pulse Rate 57 L Pulse Rate [Pulse Oximeter] 79 79 Respiratory Rate 14 14 Blood Pressure Blood Pressure [Left Arm] 143/76 H Pulse Oximetry 94 Oxygen Delivery Method Nasal Cannula Oxygen Flow Rate 1 Fraction of Inspired Oxygen 04/02/25 23:40 04/03/25 03:50 Temperature 98.2 F Pulse Rate Pulse Rate [Pulse Oximeter] 72 Respiratory Rate 14 14 Blood Pressure Blood Pressure [Left Arm] 145/76 H Pulse Oximetry 94 93 Oxygen Delivery Method Nasal Cannula Nasal Cannula Oxygen Flow Rate 1 1 Fraction of Inspired Oxygen Assessment and Plan Assessment and plan (1) Fracture of hip, left, closed: Problem details: S/P left IM nail for intertrochanteric fracture (DOS 04/02/25) Status: Acute (2) Afib: Problem details: It seems patient had an episode of AFib in the past on metoprolol A note from Cardiology office states that patient was started on Eliquis But the patient states that she was never on any blood thinners and she is not taking Eliquis. Status: Acute (3) Syncope: Problem details: Hx of syncope in december 2023 Her fall this time is mechanical, no loss of consciousness I checked cardiology notes ( & 2023). Workup for syncopal episode: Cardiac catheterization 01/03/2024 which showed mild CAD, she had an MRI of the heart too. She wore a ZIO patch and had a loop recorder implant that didn't show any events except for : One Pause episode: 1 detection occurred on 03/17 at 1456. Viewable ECG shows NSR ~63 bpm, followed by 2.5 second pause (potential rare P waves noted but unable to discern). Patient then continues in NSR w/out Associated symptoms. N.B on 08/12/24 Pt had an AFib episode Status: Acute (4) Non-STEMI (non-ST elevated myocardial infarction): Problem details: Cardiac catheterization 01/03/2024 mild CAD cardiac MR done Status: Acute (5) Hypertension: Problem details: Resume medications Status: Acute (6) Normal echocardiogram: Problem details: 12/2023 regional wall abnl, EF 61% Status: Acute Plan - Complete 23 hour perioperative antibiotics. - PT/OT consult for education and assistance. - Social work consult for discharge planning - patient desires to return home at discharge hospital. She has help at home. Lives on 1 level. Disposition will depend on how she does with therapy today. - Prescribed analgesics as needed - DVT prophylaxis: Rivaroxaban for 5 days, 81 mg aspirin by mouth twice daily 25 days after rivaroxaban completion, walking, and SCDs. - Anticipation is for discharge (disposition unknown at this time pending therapies). * recommend removing the Mat bandage girdle during therapy today to see how she does, and to see if hematoma redevelopes. If hematoma returns, please contact orthopedics.
[2025-04-03] MEDS: ACETAMINOPHEN 325 MG TABLET 650 MG PO ×2 (08:36→18:22)
[2025-04-03] MEDS: SENNOSIDES 1 TAB TABLET 2 TAB PO ×2 (08:58→20:45)
[2025-04-03] MEDS: METOPROLOL SUCCINATE (XL) 25 MG TAB PO (08:58)
[2025-04-03] MEDS: ATORVASTATIN CALCIUM 40 MG TABLET PO (08:58)
[2025-04-03] MEDS: RIVAROXABAN 10 MG TABLET PO (08:58)
[2025-04-03 10:41] LABS: Chloride* 104 mmol/L (96-114); Potassium* 4.1 mmol/L (3.6-5.1); Sodium* 140 mmol/L (135-149)
[2025-04-03 10:44] LABS: Anion Gap 11 mEq/L (7-15); Blood Urea Nitrogen* 14 mg/dL (7-30); Carbon Dioxide* 25 mmol/L (20-32); Creatinine* 0.8 mg/dL (0.5-1.5); Est. Creatinine Clearance* 43.91; Estimated Glomerular Filt Rate 78 ml/min
[2025-04-03 10:45] LABS: Calcium* 9.0 mg/dL (8.4-10.6); Glucose* 157 mg/dL (60-115)
[2025-04-03 11:16] LABS: Hematocrit 40.1 % (33.0-51.0); Hemoglobin* 13.0 gm/dL (12.0-16.0); Immature Granulocytes Abs Auto 0.01 K/uL (0.00-0.30); Immature Granulocytes Pct Auto 0.1 %; Mean Corpuscular HGB Conc 32 gm/dL (32-36); Mean Corpuscular Hemoglobin 30 pg (26-34); Mean Corpuscular Volume 93 fL (80-100); RDW Coefficient of Variation % 13.8 % (11.5-15.5); Red Blood Count 4.32 m/uL (4.00-5.20); White Blood Count* 10.87 K/uL (4.50-11.00)
[2025-04-03 11:18] LABS: Lymphocytes Absolute Auto 1.80 K/uL (0.90-2.90)
[2025-04-03 11:19] LABS: Slide Review Reflex No
--- NOTE | 2025-04-03 11:43 | PC.SOCIAL ---
Discharge planning: Pt will be able to discharge this afternoon home with her and will do outpatient physical therapy. No social work needs noted at this time. Social work to follow-up if needed.
[2025-04-03] MEDS: SODIUM CHLORIDE 0.9 % (FLUSH) 10 ML SYRINGE 5 ML IVF (12:13)
[2025-04-03] MEDS: CARBOXYMETHYLCELLULOSE (REFRESH PLUS) TEARS 1 DROP EYE-BOTH (14:28)
--- NOTE | 2025-04-03 15:26 | PM.IMPN1 ---
Assessment and Plan Assessment and plan (1) Fracture of hip, left, closed: Problem comment: S/P left IM nail for intertrochanteric fracture (DOS 04/02/25). No apparent complications Status: Acute (2) Afib: Problem comment: Had 10 hour episode of atrial fibrillation detected on implantable loop recorder. Started on Eliquis about July 2024. Apparently no further episodes. Currently in sinus rhythm Status: Acute (3) Syncope: Problem comment: Hx of syncope in december 2023 Her fall this time is mechanical, no loss of consciousness I checked cardiology notes ( & 2023). Workup for syncopal episode: Cardiac catheterization 01/03/2024 which showed mild CAD, she had an MRI of the heart too. She wore a ZIO patch and had a loop recorder implant that didn't show any events except for : One Pause episode: 1 detection occurred on 03/17 at 1456. Viewable ECG shows NSR ~63 bpm, followed by 2.5 second pause (potential rare P waves noted but unable to discern). Patient then continues in NSR w/out Associated symptoms. N.B on 08/12/24 Pt had an AFib episode Status: Acute (4) Non-STEMI (non-ST elevated myocardial infarction): Problem comment: Cardiac catheterization 01/03/2024 mild CAD cardiac MR done Status: Acute (5) Normal echocardiogram: Problem comment: 12/2023 regional wall abnl, EF 61% Status: Acute (6) Chronic anticoagulation: Problem comment: Patient does not recall this but she has been refilling Eliquis at the pharmacy for the past 8 months. Resume Eliquis for stroke prophylaxis and VTE prophylaxis after hip fracture. Stop aspirin Status: Acute (7) Cognitive impairment: Problem comment: Unable to recall her medications, particularly Eliquis, or her primary care clinic or primary care provider, [facility] in [place], Celsa Pacheco MD. Obtain [place] Status: Acute Plan 74-year-old female status post left intertrochanteric hip fracture ORIF yesterday. Doing quite well. Probable discharge to home with tomorrow. Ongoing review of medication management and cognitive function and mobility. Total Time Spent Total Time Spent: Total time spent today is 65 minutes in reviewing outside records, coordination of care, discussing with patient, pharmacy, and other providers ongoing management of anticoagulation and hip fracture Subjective Date Seen: 04/03/25 Interval history: Admission HPI: 74 year old female with past medical history of hyperlipidemia, A-Fib & history of non-STEMI/ mild coronary artery disease who presents to the ED after falling from a standing position. Patient denies losing consciousness or hitting her head. she described a mechanical fall. She presented with left hip pain. Previously, pt had a syncopal episode (2023), I checked cardiology notes ( & 2023). Workup for syncopal episode: Cardiac catheterization 01/03/2024 which showed mild CAD, she had an MRI of the heart too. She wore a ZIO patch and had a loop recorder implant that didn't show any events except for : One Pause episode: 1 detection occurred on 03/17 at 1456. Viewable ECG shows NSR ~63 bpm, followed by 2.5 second pause (potential rare P waves noted but unable to discern). Patient then continues in NSR w/out Associated symptoms. N.B on 08/12/24 Pt had an AFib episode and was started on Eliquis. Patient was quite clear that she was not taking Eliquis. I spoke with her pharmacist at [facility] in [place] and the pharmacist reports that she has been getting refills of Eliquis since last winter, most recently 180 pills on February 08 2025. On April 02 she underwent ORIF of her intertrochanteric fracture without complication. Estimated blood loss of 100 mL. Postoperatively she has had some bruising around her left hip. She is otherwise doing well. She reports she is able to ambulate. Exam Narrative: Exam Narrative: She is alert, pleasant and in no distress. She is unable to remember significant past medical history about her cardiac history, her AFib, her medications. Lower extremities examined. She has moderate swelling and bruising around the left hip. Intact pulses and sensation distally. No edema. Const: Vital Signs, click to edit/add: Vital Signs - 24 hr 04/02/25 15:30 04/02/25 16:00 04/02/25 16:30 Temperature 96.7 F L 97.7 F Pulse Rate 52 L 52 L 51 L Pulse Rate [Pulse Oximeter] Respiratory Rate 16 16 Blood Pressure 141/69 H 142/77 H 147/68 H Blood Pressure [Le ft Arm] Blood Pressure [Ri ght Arm] Pulse Oximetry 92 95 97 Oxygen Delivery Me thod Nasal Cannula Nasal Cannula Oxygen Flow Rate 2 2 Fraction of Inspir ed Oxygen 100 04/02/25 17:30 04/02/25 18:30 04/02/25 19:30 Temperature 96.9 F L 96.9 F L 97.0 F L Pulse Rate 61 50 L 65 Pulse Rate [Pulse Oximeter] Respiratory Rate 16 16 Blood Pressure 133/61 128/72 139/73 Blood Pressure [Le ft Arm] Blood Pressure [Ri ght Arm] Pulse Oximetry 95 91 98 Oxygen Delivery Me thod Room Air Room Air Nasal Cannula Oxygen Flow Rate 1 Fraction of Inspir ed Oxygen 100 04/02/25 20:30 04/02/25 22:38 04/02/25 23:00 Temperature 97.0 F L Pulse Rate 61 57 L Pulse Rate [Pulse Oximeter] 79 Respiratory Rate 16 14 Blood Pressure 147/60 H Blood Pressure [Le ft Arm] Blood Pressure [Ri ght Arm] Pulse Oximetry 91 Oxygen Delivery Me thod Room Air Oxygen Flow Rate Fraction of Inspir ed Oxygen 04/02/25 23:40 04/02/25 23:40 04/03/25 03:50 Temperature 97.6 F 98.2 F Pulse Rate Pulse Rate [Pulse Oximeter] 79 72 Respiratory Rate 14 14 14 Blood Pressure Blood Pressure [Le ft Arm] 143/76 H 145/76 H Blood Pressure [Ri ght Arm] Pulse Oximetry 94 94 93 Oxygen Delivery Me thod Nasal Cannula Nasal Cannula Nasal Cannula Oxygen Flow Rate 1 1 1 Fraction of Inspir ed Oxygen 04/03/25 07:34 04/03/25 08:39 04/03/25 08:39 Temperature 99.5 F Pulse Rate 60 Pulse Rate [Pulse Oximeter] 82 Respiratory Rate 16 Blood Pressure Blood Pressure [Le ft Arm] Blood Pressure [Ri ght Arm] 154/82 H Pulse Oximetry 94 94 Oxygen Delivery Me thod Room Air Room Air Oxygen Flow Rate Fraction of Inspir ed Oxygen 04/03/25 08:39 04/03/25 11:18 Temperature 98.7 F Pulse Rate Pulse Rate [Pulse Oximeter] 82 81 Respiratory Rate 19 16 Blood Pressure Blood Pressure [Le ft Arm] 131/82 Blood Pressure [Ri ght Arm] Pulse Oximetry 95 Oxygen Delivery Me thod Room Air Oxygen Flow Rate Fraction of Inspir ed Oxygen Documenting provider has reviewed patient's vital signs: yes Labs Labs: Laboratory Results - last 24 hr 04/03/25 09:52 WBC 10.87 RBC 4.32 Hgb 13.0 Hct 40.1 MCV 93 MCH 30 MCHC 32 RDW Coeff of Niya 13.8 Plt Count 195 Neut % (Auto) 74.6 H Lymph % (Auto) 16.2 L [place] % (Auto) 8.9 Eos % (Auto) 0.1 Baso % (Auto) 0.1 Neut # (Auto) 8.10 H Lymph # (Auto) 1.80 Camp # (Auto) 1.00 H Eos # (Auto) 0.01 Baso # (Auto) 0.01 Abs Immat Gran (auto) 0.01 Imm/Tot Granulo (auto) 0.1 Sodium 140 Potassium 4.1 Chloride 104 Carbon Dioxide 25 Anion Gap 11 BUN 14 Creatinine 0.8 Estimated Creat Clear 43.91 Estimated GFR 78 Glucose 157 H Calcium 9.0
--- NOTE | 2025-04-03 18:26 | PC.NURSE ---
End of Shift: Patient pleasant and cooperative. Patient does seem to have some cognitive deficit, is forgetful at times. Patient vitally stable, lungs clear, BS WNL, NO IV. Patient left hip dressing x2 are C/D/I. Patient always rates her pain at most 6/10 and lowest 4/10, tylenol given twice and 5mg of oxy given x3. Patient 1 assist/walker, urinating well. Patient tolerating regular diet. Tele=NSR.
[2025-04-03] MEDS: APIXABAN 5 MG TABLET PO (20:45)
[2025-04-04 06:01] VITALS: BP 176/87; PULSE 82; RESP 20; TEMP 36.6; O2SAT 90
[2025-04-04] MEDS: ACETAMINOPHEN 325 MG TABLET 650 MG PO (06:09)
--- NOTE | 2025-04-04 06:14 | PC.NURSE ---
End of shift [id number]: Pt AxOx3, cooperative, and pleasant with cares. Continent of bladder. Passing flatus. Pt reports pain to the hip that is managed with inactivity, PRN Tylenol, and active ice. Mat wrap applied around Pts hips. Hematoma is within the marked margins. Dressing remains CDI. SBA GB W to the bathroom. No IV in place upon initial assessment, okayed by MD Middleton. Refused SCDs. Pt in bed with call light in reach. ?
[2025-04-04 06:28] LABS: Hemoglobin* 10.6 gm/dL (12.0-16.0)
[2025-04-04 07:00] VITALS: BP 118/59; PULSE 77; PULSE 94; PULSE 96; RESP 20; O2SAT 92
[2025-04-04 07:28] LABS: Albumin* 3.5 g/dL (3.3-5.0)
[2025-04-04 07:31] LABS: Alanine Aminotransferase* 20 U/L (4-35); Alkaline Phosphatase* 71 U/L (40-150); Aspartate Amino Transferase* 33 U/L (12-35); Bilirubin Direct* 0.3 mg/dL (0.0-0.5); Bilirubin Total* 0.7 mg/dL (0.1-1.5); Total Protein* 6.4 g/dL (6.0-8.3)
[2025-04-04] MEDS: METOPROLOL SUCCINATE (XL) 25 MG TAB PO (09:08)
[2025-04-04] MEDS: SENNOSIDES 1 TAB TABLET 2 TAB PO (09:08)
[2025-04-04] MEDS: ATORVASTATIN CALCIUM 40 MG TABLET PO (09:08)
[2025-04-04] MEDS: APIXABAN 5 MG TABLET PO (09:08)
--- NOTE | 2025-04-04 10:54 | P.DS_ITS ---
DS: Providers Provider Date Seen: 04/04/25 Date of admission: 04/02/25 07:09 Primary care physician: Not a Local Provider Admitting Clinician: Sara Middleton MD Attending Physician on discharge: Brannon Tsang MD Date of Discharge: 04/04/25 DS: Diagnosis Discharge Diagnosis (1) Fracture of hip, left, closed: Status: Acute Problem details: S/P left IM nail for intertrochanteric fracture (DOS 04/02/25). No apparent complications. Excellent recovery. (2) Afib: Status: Acute Problem details: Had 10 hour episode of atrial fibrillation detected on implantable loop recorder. Started on Eliquis about July 2024. Apparently no further episodes. Currently in sinus rhythm (3) Chronic anticoagulation: Status: Acute Problem details: Patient does not recall this but she has been refilling Eliquis at the pharmacy for the past 8 months. She probably is not regularly taking Eliquis even though she has been refilling it at the pharmacy. Resume Eliquis for stroke prophylaxis and VTE prophylaxis after hip fracture. Stop aspirin. (4) Cognitive impairment: Status: Acute Problem details: Unable to recall her medications, particularly Eliquis, or her primary care clinic or primary care provider, [facility] in [place]. Jayuya score on 04/04/2025 is 13/30. Likely indicates dementia. Discussed with patient and need for supervision with medication and use of medication box. Recommend advanced care planning to address the likelihood of her losing her independence over the next few years. Recommend home safety evaluation and driver license agent safety evaluation DS: Summary Hospital Course Hospital Course: Admission HPI: 74 year old female with past medical history of hyperlipidemia, A-Fib & history of non-STEMI/ mild coronary artery disease who presents to the ED after falling from a standing position. Patient denies losing consciousness or hitting her head. she described a mechanical fall. She presented with left hip pain. Previously, pt had a syncopal episode (2023), I checked cardiology notes ( & 2023). Workup for syncopal episode: Cardiac catheterization 01/03/2024 which showed mild CAD, she had an MRI of the heart too. She wore a ZIO patch and had a loop recorder implant that didn't show any events except for : One Pause episode: 1 detection occurred on 03/17 at 1456. Viewable ECG shows NSR ~63 bpm, followed by 2.5 second pause (potential rare P waves noted but unable to discern). Patient then continues in NSR w/out Associated symptoms. N.B on 08/12/24 Pt had an AFib episode and was started on Eliquis. Patient was quite clear that she was not taking Eliquis. I spoke with her pharmacist at [facility] in [place] and the pharmacist reports that she has been getting refills of Eliquis since last winter, most recently 180 pills on February 08 2025. On April 02 she underwent ORIF of her intertrochanteric fracture without complication. Estimated blood loss of 100 mL. Postoperatively she has had some bruising around her left hip. She is otherwise doing well. She reports she is able to ambulate. During her hospital stay there was evidence that she was quite forgetful. This initially came up when she could not recall taking Eliquis. She had been filling the Eliquis prescription at the pharmacy but not taking it. Her brought in a full bottle of Eliquis that she filled in January. Jayuya was performed and she scored 13/30 indicating probable dementia. Outpatient recommendations include having her go to appointments with her, help her with setting up and taking medications and she should have home safety evaluation and driver license agent safety evaluation. Status at Discharge Overall status at discharge: patient is progressing back to baseline Time Spent with Patient Time attestation: Total time spent providing and/or coordinating discharge services: 45 minutes Time spent: Greater than 30 minutes Exam Narrative: Exam Narrative: She is alert and appears in no distress. She does not recall much of what has happened in the last few days. I did a 3 item recall test with her and she was unable to recall any of the 3 items. Lower extremities with intact pulses and sensation. Minimal edema in the left leg. Const: Vital Signs, click to edit/add: Vital Signs - 24 hr 04/03/25 11:18 04/03/25 15:28 04/03/25 15:28 Temperature 98.7 F 98.1 F Pulse Rate Pulse Rate [Pulse Oximeter] 81 71 71 Respiratory Rate 16 16 16 Blood Pressure [Le ft Arm] 131/82 Blood Pressure [Ri ght Arm] 128/70 Pulse Oximetry 95 92 Oxygen Delivery Me thod Room Air Room Air 04/03/25 15:28 04/03/25 16:10 04/03/25 19:45 Temperature 98.4 F Pulse Rate 72 Pulse Rate [Pulse Oximeter] 67 Respiratory Rate 16 18 Blood Pressure [Le ft Arm] 153/65 H Blood Pressure [Ri ght Arm] 115/66 Pulse Oximetry 92 92 Oxygen Delivery Me thod Room Air Room Air 04/03/25 22:05 04/03/25 23:34 04/03/25 23:34 Temperature 98 F Pulse Rate 64 Pulse Rate [Pulse Oximeter] 69 Respiratory Rate 18 18 Blood Pressure [Le ft Arm] 153/65 H Blood Pressure [Ri ght Arm] Pulse Oximetry 91 91 Oxygen Delivery Me thod Room Air Room Air 04/04/25 06:01 04/04/25 07:00 04/04/25 07:00 Temperature 98 F Pulse Rate Pulse Rate [Pulse Oximeter] 82 96 Respiratory Rate 20 20 20 Blood Pressure [Le ft Arm] 176/87 H Blood Pressure [Ri ght Arm] Pulse Oximetry 90 92 Oxygen Delivery Me thod Room Air Room Air 04/04/25 07:00 Temperature Pulse Rate Pulse Rate [Pulse Oximeter] 94 Respiratory Rate 20 Blood Pressure [Le ft Arm] Blood Pressure [Ri ght Arm] 118/59 L Pulse Oximetry 92 Oxygen Delivery Me thod Room Air Documenting provider has reviewed patient's vital signs: yes DS: Data Data Completed and Pending Labs on day of discharge: Labs from last 24 hours 04/04/25 04/04/25 04/03/25 07:07 05:50 09:52 WBC 10.87 RBC 4.32 Hgb 10.6 L 13.0 Hct 40.1 MCV 93 MCH 30 MCHC 32 RDW Coeff of Niya 13.8 Plt Count 195 Neut % (Auto) 74.6 H Lymph % (Auto) 16.2 L [place] % (Auto) 8.9 Eos % (Auto) 0.1 Baso % (Auto) 0.1 Neut # (Auto) 8.10 H Lymph # (Auto) 1.80 [place] # (Auto) 1.00 H Eos # (Auto) 0.01 Baso # (Auto) 0.01 Abs Immat Gran (auto) 0.01 Imm/Tot Granulo (auto) 0.1 Sodium 140 Potassium 4.1 Chloride 104 Carbon Dioxide 25 Anion Gap 11 BUN 14 Creatinine 0.8 Estimated Creat Clear 43.91 Estimated GFR 78 Glucose 157 H Calcium 9.0 Total Bilirubin 0.7 Direct Bilirubin 0.3 AST 33 ALT 20 Alkaline Phosphatase 71 Total Protein 6.4 Albumin 3.5 Lab Acknowledgement Test Added Discharge Plan Discharge Disposition: Home, Self-Care Date of Admission: 04/02/25 07:09 Attending Provider on Discharge: Stan Tsang Primary Care Provider: Provider,Not a Local Condition: Stable Anticipated Discharge Date/Time: 04/04/25 10:34 Discharge Medications: New sennosides-docusate sodium [Senna-S] 8.6-50 mg tablet 1 - 4 tab-cap PO BID PRN (Reason: constipation) Qty: 60 0RF Rx Instructions: Hold medication if experiencing loose stools. acetaminophen 500 mg capsule 500 - 1,000 mg PO Q6H MDD 4000mg PRNQty: 100 0RF oxycodone 5 mg tablet 2.5 - 5 mg PO Q4-6H MDD 6 PRN (Reason: pain) Qty: 30 0RF Rx Instructions: Take as needed for postop pain: 2.5mg mild pain, 5mg moderate-severe pain; wean as tolerated. Eliquis 5 mg Tablet 5 mg PO BID Qty: 60 0RF Continued metoprolol succinate 25 mg tablet extended release 24 hr 25 mg PO DAILY lisinopril 10 mg tablet 10 mg PO DAILY atorvastatin 40 mg tablet 40 mg PO DAILY carboxymethylcellulose sodium [Refresh Tears] 0.5 % drops 1 drp ophthalmic (eye) BID-TID PRN cetirizine 10 mg tablet 10 mg PO DAILY PRN cholecalciferol (vitamin D3) 125 mcg (5,000 unit) capsule 125 mcg PO DAILY collagen, Vit c, biotin 60 mcg PO omega 6-cod-zhd-fish oil [Fish Oil] 1,200 (144-216) mg capsule 1 cap PO DAILY ascorbic acid (vitamin C) 1,000 mg tablet 1 g PO QDAY calcium carbonate [Calcium 600] 600 mg calcium (1,500 mg) tablet 600 mg PO DAILY Discontinued aspirin [Adult Aspirin Regimen] 81 mg tablet,delayed release (DR/EC) 81 mg PO DAILY amlodipine 10 mg tablet 10 mg PO DAILY Discharge Orders: Discharge Order (Routine); Ordered 04/04/25 Ordered By: Stan Tsang Patient Education: Acetaminophen (By mouth), Oxycodone, Rapid Release (By mouth), Apixaban (By mouth) (Eliquis), Senna (By mouth), Hip Fracture (GEN), ORIF (DC), Mild Cognitive Impairment: New Diagnosis (DC) Additional Instructions: You are on a strong pain medicine which causes sedation and constipation. Because of the sedation you should not drive while taking it. Because of the constipation you should take senna or MiraLax as needed to have a bowel movement every day. Adjust the dose of laxative to have 1 soft bowel movement a day. You have some problems with your memory. I strongly recommend further evaluation of this. We will set up outpatient evaluation and you can talk with your doctor about seeing a specialist as well. I recommend you use a pillbox to help you remember to take her medications. You and your should together set up your medications in a pillbox every weekend. You and your should also go to appointments together so that you understand the results of the evaluation by your doctor. Activity Level: Activity as Tolerated, Weight Bearing as Tolerated and Use Walker Activity Detail: Wound: ? Do not remove original dressings; we will remove this at first postop visit. Only remove dressing if integrity is in question. ? No immersing wound in water; showering okay; light scrub with your hand and body soap, rinse, dab dry ? Sutures are under the skin, will dissolve; allow surgical glue to come off naturally; do not scrub the wound or apply ointments/lotions ? Call our office with any redness that streaks, excessive drainage from the wound, or wound gapping. Ice/Elevate: ? Ice as needed for swelling and discomfort; elevate extremity frequently above the heart. Motion/Exercise: ? Weight bear as tolerated operative extremity (walker/cane for ambulation assistance as needed) ? Per PT/OT. ? Straight leg raises daily: 1-2 sets of 10 reps Pain Medications: ? Oral narcotic as prescribed. Wean as tolerated. Additional acetaminophen and ibuprofen as needed. Blood Clot Prevention (DVT): ? Medication: 5 days of xarelto, followed by 25 days 81 mg aspirin by mouth twice daily (1 month total treatment) Driving: ? Do not drive while taking narcotic pain medication ? Anticipate 4-6 weeks no driving if operative leg is driving leg Dental: ? No elective dental work for 3 months post-op. If there is an urgent/emergent dental need, contact our office for an antibiotic prescription. Smoking/Alcohol: ? Do not smoke; do no drink alcohol especially when taking postoperative oral narcotic medication Seek Care from you Primary Care Provider if you experience the following issues in the postoperative phase and beyond: ? Bacterial infections such as: pneumonia, bacterial skin infection (cellulitis), UTI, high fever, chills unrelated to the operative body part - call your primary care physician urgently for treatment in hopes to protect your health and the metal implant. Referrals: ? PT, OT per patient preference - evaluate & treat total hip arthroplasty protocol, anterior approach (gait training, ROM, ADLs) Vaccines: ? No vaccines until 4-6 weeks postop Follow-up in 10-14 days. If there are any acute concerns regarding your surgery, please call our orthopedic clinic ([phone]) Discharge Diet: Regular Follow Up Appointments: Meli Weeks PA-C [Physician Ethnographic Materials Conservator, Family Practice] - 04/17/25 11:00 am Referral Note: [facility] for hospital follow-up. Primary was not available. Provider,Not a Local [Primary Care Provider, Family Practice] Referral Note: 3-4 weeks Forms: Patient Belongings, MyHealth Info Instructions
--- NOTE | 2025-04-04 12:32 | PC.NURSE ---
Nursing Care Hours: 6212-9120 Pt this shift irritable, c/o food, lab draw, and the evaluations that OT wanted today. Pt spouse in the room and pt seems to remain calm with his presence. VSS. Bandage CDI, and swelling to upper thigh swollen but within outlined borders. DC instructions went over with pt and spouse. All questions and concerns addressed. No IV in. Pain treated with PO meds.
== END 2025-04-04 12:00 | disposition home or self-care (01) | DRG 482 ==
LOC: ED 23:14 → MEDSURG 23:16
PROVIDERS: Family Medicine; Orthopaedic Surgery Sports Medicine; Admitting Provider Student in an Organized Health Care Education/Training Program; Emergency Provider Student in an Organized Health Care Education/Training Program; Visit Provider Student in an Organized Health Care Education/Training Program
PROC: 0QS706Z Reposition Left Upper Femur with Intramedullary Internal Fixation Device, Open Approach (ICD-10-PCS; CPT 27245; principal; 2025-04-02 11:15)
DX: S72.142A Displaced intertrochanteric fracture of left femur, initial encounter for closed fracture (principal); G89.18 Other acute postprocedural pain; W01.0XXA Fall on same level from slipping, tripping and stumbling without subsequent striking against object, initial encounter; Y92.018 Other place in single-family (private) house as the place of occurrence of the external cause; G31.84 Mild cognitive impairment of uncertain or unknown etiology; I48.91 Unspecified atrial fibrillation; Z79.01 Long term (current) use of anticoagulants; Z79.82 Long term (current) use of aspirin; I10 Essential (primary) hypertension; R73.01 Impaired fasting glucose; I25.2 Old myocardial infarction; E78.5 Hyperlipidemia, unspecified
CPT/HCPCS: 01230; 36415; 51798; 64450; 73502; 73551; 76000; 76942; 80048; 80053; 80076; 83735; 85018; 85025; 85027; 93005; 94761; 97110; 97116; 97161; 97165; 97530; 97535; 99100; 99285; A9270; C1713; G0378; J0690; J1100; J2250; J2270; J2371; J2405; J2704; J2795; J3010; J3490; J7120

== ENCOUNTER 2025-05-11 10:15 | Outpatient (RCR) | payer MEDICARE, SELFPAY ==
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
== END 2025-05-25 10:50 | disposition home or self-care (01) ==
PROVIDERS: PCP Physician Assistant Medical; Visit Provider Family Medicine
DX: G31.84 Mild cognitive impairment of uncertain or unknown etiology (principal); Z51.89 Encounter for other specified aftercare
CPT/HCPCS: 97166; 97535

== ENCOUNTER 2025-05-15 11:39 | Outpatient (CLI) | payer MEDICARE, SELFPAY | END 2025-05-15 11:40 | disposition home or self-care (01) | PROVIDERS: PCP Physician Assistant Medical; Visit Provider Physician Assistant Medical | DX: R41.89 Other symptoms and signs involving cognitive functions and awareness (principal) | CPT/HCPCS: 80061; 82306; 82525; 82607; 82746; 83785; 84165; 84425 ==